=== PATIENT | male | born 1945 | race Caucasian/White ===

== ENCOUNTER 2024-08-14 09:13 | Day surgery (SDC) | payer OTHER ==
[2024-08-12 13:26] LABS: HEMATOCRIT 38.1 % (39.0-48.0); HEMOGLOBIN 12.6 g/dL (13-16.00); MEAN CORPUSCULAR HEMOGLOBIN 28.1 pg (27.00-32.0); PLATELET COUNT 224 K/uL (150-450); RED BLOOD COUNT 4.48 M/uL (4.00-6.00); RED CELL DISTRIBUTION WIDTH 13.8 % (11.5-14.5)
[2024-08-12 13:57] LABS: ALBUMIN 3.6 gm/dL (3.4-5.0); BILIRUBIN TOTAL 0.35 mg/dL (0.3-1.2); CALCIUM 9.9 mg/dL (8.5-10.1); CREATININE SERUM 1.73 mg/dL (0.70-1.30); GFR 38.29; GLOBULINA 3.8 G/DL (2.4-3.5); POTASSIUM 4.25 mEq/L (3.5-5.1); TOTAL PROTEIN 7.4 gm/dL (6.4-8.2)
[2024-08-12 14:03] LABS: INR 0.95; PARTIAL THROMBOPLASTIN TIME 25.9 SECONDS (22.0-34.0); PROTHROMBIN TIME 10.4 SECONDS (9.0-11.5)
[~2024-08-14 09:13] MED LIST: BISOPROLOL FUMAR5 MG PO; GLIPIZIDE XL5 MG PO; NORVASC5 MG PO; VALSARTAN320 MG PO
[2024-08-14] MEDS ORDERED: fentaNYL CITRATE 50 MCG/ML AMPUL IV PUSH ONE (14:45)
[2024-08-14] MEDS ORDERED: DIPHENHYDRAMINE HCL 50 MG/ML VIAL 1ML IV ONE (14:45)
[2024-08-14] MEDS ORDERED: MIDAZOLAM HCL 2 MG/2 ML VIAL IV ONE (14:45)
== END 2024-08-14 16:35 | disposition home or self-care (01) ==
LOC: CIR.AMB 09:13 → AMB-ENDOS 09:13 → CIR.AMB 12:22 → AMB-ENDOS 16:35
PROVIDERS: ATTEND Internal Medicine
DX: K62.7 Radiation proctitis (principal); K57.30 Diverticulosis of large intestine without perforation or abscess without bleeding; K62.5 Hemorrhage of anus and rectum; K62.89 Other specified diseases of anus and rectum; K63.89 Other specified diseases of intestine

== ENCOUNTER 2024-11-24 06:44 | Day surgery (SDC) | payer OTHER ==
[2024-11-24] MEDS ORDERED: DIPHENHYDRAMINE HCL 50 MG/ML VIAL 1ML IV ONE ×2 (13:30)
[2024-11-24] MEDS ORDERED: fentaNYL CITRATE 50 MCG/ML AMPUL IV PUSH ONE (13:30)
[2024-11-24] MEDS ORDERED: ENALAPRILAT DIHYDRATE 1.25 MG/ML VIAL IV ONE (18:15)
[2024-11-24] MEDS ORDERED: hydrALAZINE HCL 20 MG VIAL IV ONE (18:15)
== END 2024-11-24 15:50 | disposition home or self-care (01) ==
LOC: AMB-ENDOS 06:44
PROVIDERS: ATTEND Internal Medicine
DX: K62.5 Hemorrhage of anus and rectum (principal); K62.7 Radiation proctitis; K62.89 Other specified diseases of anus and rectum; Z88.8 Allergy status to other drugs, medicaments and biological substances

== ENCOUNTER 2024-12-01 11:27 | Emergency (ER) | payer OTHER ==
[~2024-12-01] VITALS: Ht 170.2 cm; Wt 84.4 kg
[2024-12-01] MEDS ORDERED: 0.9 % SODIUM CHLORIDE 1,000 ML IV STA (13:06)
[2024-12-01 13:59] LABS: BASO % 0.7 % (0.1-1.2); EOS # 0.32 (0.04-0.54); EOS % 5.2 % (0.7-7.0); LYMPH # 0.79 (1.18-3.74); LYMPH % 12.9 % (19.3-53.1); MEAN PLATELET VOLUME 10.20 fl (9.4-12.4); MONO # 0.71 (0.24-0.82); MONO % 11.6 % (4.7-12.5); NEUT # 4.24 (1.56-6.13); NEUT % 69.1 % (34.0-71.1); RED CELL DISTRIBUTION WIDTH 13.5 % (11.6-14.4)
[2024-12-01 14:15] LABS: INR 0.95
[2024-12-01 14:57] LABS: ALT/SGPT 30 U/L (12-78); AST/SGOT 23 U/L (15-37); BILIRUBIN TOTAL 0.15 mg/dL (0.3-1.2); BILIRUBIN,CONJUGATED < 0.10 mg/dL (0.0-0.2); BUN CREA RATIO 18 (7.0-25.0); CREATININE SERUM 1.60 mg/dL (0.70-1.30); GFR 41.90; GLOBULINA 4.0 G/DL (2.4-3.5); GLUCOSE FASTING 75 mg/dL (65-100); OSMOLALITY SERUM 284 MOSM/KG (275-295)
== END 2024-12-01 16:02 | disposition home or self-care (01) ==
LOC: ER 11:27
DX: K62.5 Hemorrhage of anus and rectum (principal); R53.1 Weakness; Z88.5 Allergy status to narcotic agent
CPT/HCPCS: 36415; 96365; 96366; 99282; J7030